=== PATIENT | male | born 1985 | race Caucasian/White ===

== ENCOUNTER 2017-04-17 17:08 | Emergency (ER) | payer OTHER ==
[~2017-04-17] VITALS: Ht 175.3 cm; Wt 97.5 kg
[~2017-04-17 17:08] MED LIST: ANTIBIODICS; ASPI325EC PO; Bactrim Ds Tab1 EACH PO; CYCL10 PO; Cipro500 MG PO; DOCU100 PO; FAMO20 PO; Flagyl500 MG PO; HYDACE5 PO; HYDMOR2 PO; IBUPROFEN200 MG PO; Ibuprofen Ib200 MG PO; KETO10 PO; MELA3 PO; Multiple Vitam1 EAC1 PO; Norco 10-325 T1 EACH PO; PROM25 PO; Percocet 5-3251 EACH PO; SULTRIDS PO; Zofran Odt4 MG SL; Zofran Odt8 MG SL; [UNRECOGNIZED DRUG - OTHER] PO
== END 2017-04-17 17:36 | disposition home or self-care (01) ==
LOC: ER 17:08
DX: H72.92 Unspecified perforation of tympanic membrane, left ear (principal); Z88.5 Allergy status to narcotic agent; Z87.891 Personal history of nicotine dependence
CPT/HCPCS: 99282

== ENCOUNTER 2017-04-19 03:34 | Emergency (ER) | payer OTHER ==
[~2017-04-19] VITALS: Ht 175.3 cm; Wt 97.5 kg
[2017-04-19] MEDS ORDERED: Zofran Odt4 MG SL (03:54)
[2017-04-19] MEDS ORDERED: Ultram50 MG PO (03:54)
== END 2017-04-19 04:10 | disposition home or self-care (01) ==
LOC: ER 03:34
DX: H72.92 Unspecified perforation of tympanic membrane, left ear (principal); Z88.5 Allergy status to narcotic agent; Z87.891 Personal history of nicotine dependence; Z98.890 Other specified postprocedural states
CPT/HCPCS: 96372; 99283; J1885

== ENCOUNTER 2020-04-08 21:01 | Emergency (ER) | payer OTHER ==
[~2020-04-08] VITALS: Ht 175.3 cm; Wt 91.6 kg
[~2020-04-08 21:01] MED LIST changes: +CRUTCH2 XX; +Ultram50 MG PO
[2020-04-09] MEDS ORDERED: SULTRIDS PO (00:53)
[2020-04-09] MEDS ORDERED: ONDA4 PO (00:53)
== END 2020-04-09 01:07 | disposition home or self-care (01) ==
LOC: ER 21:01
DX: L05.01 Pilonidal cyst with abscess (principal); Z88.5 Allergy status to narcotic agent; Z87.891 Personal history of nicotine dependence
CPT/HCPCS: 10080; 72193; 99283-25; A9270; Q9967

== ENCOUNTER 2020-09-08 09:33 | Emergency (ER) | payer OTHER ==
[~2020-09-08] VITALS: Ht 175.3 cm; Wt 93.0 kg
[~2020-09-08 09:33] MED LIST changes: +ONDA4 PO
[2020-09-08 10:25] LABS: Calcium, Ionized (POC) 1.28 mmol/L (1.10-1.46); Chloride (POC) 102 mmol/L (98-108); Creatinine (POC) 1.1 mg/dL (0.8-1.3); Glucose (ISTAT POC) 102 mg/dL (70-99); Hemoglobin (POC) 15.6 g/dL (13.5-17.5); Potassium (POC) 4.6 mmol/L (3.5-5.5); Sodium (POC) 141 mmol/L (135-148); Total CO2 (POC) 24 mmol/L (21-32)
[2020-09-08] MEDS ORDERED: CLIN300 PO (11:37)
== END 2020-09-08 12:07 | disposition home or self-care (01) ==
LOC: ER 09:33
PROVIDERS: Emergency Medicine
DX: J34.0 Abscess, furuncle and carbuncle of nose (principal); Z88.5 Allergy status to narcotic agent; Z79.899 Other long term (current) drug therapy
CPT/HCPCS: 70487; 80047; 85014; 96365-59; 99284-25; Q9967

== ENCOUNTER 2022-04-18 12:37 | Emergency (ER) | payer OTHER ==
[~2022-04-18] VITALS: Ht 175.3 cm; Wt 93.0 kg
[~2022-04-18 12:37] MED LIST changes: +CLIN300 PO
[2022-04-18] MEDS ORDERED: AMOCLA875 PO (15:12)
== END 2022-04-18 15:40 | disposition home or self-care (01) ==
LOC: ER 12:37
DX: S01.452A Open bite of left cheek and temporomandibular area, initial encounter (principal); W54.0XXA Bitten by dog, initial encounter; Z88.5 Allergy status to narcotic agent; Z23 Encounter for immunization
CPT/HCPCS: 90714